=== PATIENT | male | born 1975 | race Caucasian/White ===

== ENCOUNTER 2016-10-13 20:30 | Emergency (ER) | payer OTHER ==
[~2016-10-13] VITALS: Ht 182.9 cm; Wt 95.3 kg
[2016-10-13 20:45] VITALS: BP 112/69
[2016-10-13] MEDS ORDERED: IV NORMAL SALINE 1000ML BAG 1,000 ML IV ONE ×2 (21:30→21:45)
[2016-10-13 21:31] LABS: BASO # 0.1 x10^3/uL (0.0-0.2); BASO % 1 % (0-3); EOS % 1 % (0-3); HEMATOCRIT 44.2 % (39.0-53.0); HEMOGLOBIN 15.2 g/dL (13.0-17.5); LYMPH # 0.7 x10^3/uL (1.0-4.8); LYMPH % 6 % (24-48); MEAN CORPUSCULAR HEMOGLOBIN 32 pg (25-35); MEAN CORPUSCULAR HGB CONC 34 g/dL (31-37); MEAN CORPUSCULAR VOLUME 93 fL (79-100); MONO % 6 % (0-9); NEUT % 86 % (31-73); PLATELET COUNT 169 x10^3/uL (140-400); RED BLOOD COUNT 4.77 x10^6/uL (4.30-5.70); RED CELL DISTRIBUTION WIDTH 12.3 % (11.5-14.5); WHITE BLOOD COUNT 11.1 x10^3/uL (4.0-11.0)
[2016-10-13 21:40] LABS: GFR 83.2; POTASSIUM 3.5 mmol/L (3.5-5.1)
[2016-10-13 21:45] LABS: ALBUMIN 3.9 g/dL (3.4-5.0); ALBUMIN/GLOBULIN RATIO 1.1 (1.0-1.7); TOTAL BILIRUBIN 0.5 mg/dL (0.2-1.0); TOTAL PROTEIN 7.3 g/dL (6.4-8.2)
[2016-10-13] MEDS ORDERED: KETOROLAC TROMETHAMINE 30 MG/ML SYRINGE. IV ONE (21:45)
[2016-10-13] MEDS ORDERED: ONDANSETRON PF 4 MG/2 ML VIAL. IV ONE (21:45)
[2016-10-13 22:14] LABS: % EOS 2 % (0-5); PLT ESTIMATE ADEQUATE (ADEQUATE); TOXIC GRANULATION SLIGHT
[2016-10-13 22:23] LABS: OBC FLU VALID
[2016-10-13] MEDS ORDERED: ONDA4TAB7 PO (22:46)
[2016-10-13] MEDS ORDERED: OSEL75CA PO (22:46)
[2016-10-13] MEDS ORDERED: NAPR500T3 PO (22:46)
--- NOTE | 2016-10-13 22:46 | PHYS DOC ---
Past Medical History Past Medical History: No Pertinent History Additional Past Medical Histor: Pt states no health hx-has had Stress test, Echo and worn Holter monitor. Past Surgical History: Other Additional Past Surgical Histo: Dental surgery. Alcohol Use: Rarely Drug Use: None Adult General Chief Complaint Chief Complaint: MULTIPLE COMPLAINTS HPI HPI 40-year-old male presents with a 2 day history of cough, fever, sweats, body aches and upper respiratory type symptoms. He states he has had no energy over the last 2 days. He also complains of a headache in the posterior aspect of his head that goes down his back. He is not been able to tolerate fluids because he gets sick to his stomach. He has had some sharp left-sided chest pain. [] Review of Systems Review of Systems Constitutional: Per history of present illness [] Eyes: Denies change in visual acuity, redness, or eye pain [] HENT: Denies nasal congestion or sore throat [] Respiratory: Per history of present illness [] Cardiovascular: No additional information not addressed in HPI [] GI: Denies abdominal pain, nausea, vomiting, bloody stools or diarrhea [] : Denies dysuria or hematuria [] Musculoskeletal: Denies back pain or joint pain [] Integument: Denies rash or skin lesions [] Neurologic: Denies headache, focal weakness or sensory changes [] Endocrine: Denies polyuria or polydipsia [] Current Medications Current Medications Current Medications Medications (Trade) Dose Ordered Sig/[facility] Start Time Stop Time Status Last Admin Dose Admin Ketorolac Tromethamine (Toradol) 30 mg 1X ONCE 10/13/16 21:45 10/13/16 21:46 DC 10/13/16 21:52 30 MG Ondansetron HCl 4 mg 4 mg 1X ONCE 10/13/16 21:45 10/13/16 21:46 DC 10/13/16 21:52 4 MG Sodium Chloride (Iv Sodium Chloride 0.9% 1000ml Bag) 1,000 ml @ 1,000 mls/hr 1X ONCE 10/13/16 21:45 10/13/16 22:44 10/13/16 21:51 1,000 MLS/HR Allergies Allergies Allergies Coded Allergies Type Severity Reaction Last Updated Verified penicillin Allergy Unknown Anaphylaxis 04/29/15 Yes Physical Exam Physical Exam Constitutional: Well developed, well nourished, no acute distress, non-toxic appearance. [] HENT: Normocephalic, atraumatic, bilateral external ears normal, oropharynx moist, no oral exudates, nose normal. [] Eyes: PERRLA, EOMI, conjunctiva normal, no discharge. [] Neck: Normal range of motion, no tenderness, supple, no stridor. [] Cardiovascular:Heart rate regular rhythm, no murmur [] Lungs & Thorax: Bilateral breath sounds clear to auscultation [] Abdomen: Bowel sounds normal, soft, no tenderness, no masses, no pulsatile masses. [] Skin: Warm, dry, no erythema, no rash. [] Back: No tenderness, no CVA tenderness. [] Extremities: No tenderness, no cyanosis, no clubbing, ROM intact, no edema. [] Neurologic: Alert and oriented X 3, normal motor function, normal sensory function, no focal deficits noted. [] Psychologic: Affect normal, judgement normal, mood normal. [] Current Patient Data Vital Signs Vital Signs Date Time Temp Pulse Resp B/P Pulse Ox O2 Delivery O2 Flow Rate FiO2 10/13/16 20:45 100.2 105 16 112/69 96 Room Air 100.2 Lab Values Laboratory Tests Test 10/13/16 20:49 10/13/16 22:00 White Blood Count 11.1x10^3/uL (4.0-11.0) H Red Blood Count 4.77x10^6/uL (4.30-5.70) Hemoglobin 15.2g/dL (13.0-17.5) Hematocrit 44.2% (39.0-53.0) Mean Corpuscular Volume 93fL (79-100) Mean Corpuscular Hemoglobin 32pg (25-35) Mean Corpuscular Hemoglobin Concent 34g/dL (31-37) Red Cell Distribution Width 12.3% (11.5-14.5) Platelet Count 169x10^3/uL (140-400) Neutrophils (%) (Auto) 86% (31-73) H Lymphocytes (%) (Auto) 6% (24-48) L Monocytes (%) (Auto) 6% (0-9) Eosinophils (%) (Auto) 1% (0-3) Basophils (%) (Auto) 1% (0-3) Neutrophils # (Auto) 9.6x10^3uL (1.8-7.7) H Lymphocytes # (Auto) 0.7x10^3/uL (1.0-4.8) L Monocytes # (Auto) 0.7x10^3/uL (0.0-1.1) Eosinophils # (Auto) 0.1x10^3/uL (0.0-0.7) Basophils # (Auto) 0.1x10^3/uL (0.0-0.2) Segmented Neutrophils % 81% (35-66) H Band Neutrophils % 5% (0-9) Lymphocytes % 4% (24-48) L Monocytes % 8% (0-10) Eosinophils % 2% (0-5) Toxic Granulation Slight Platelet Estimate Adequate (ADEQUATE) Sodium Level 136mmol/L (136-145) Potassium Level 3.5mmol/L (3.5-5.1) Chloride Level 100mmol/L (98-107) Carbon Dioxide Level 25mmol/L (21-32) Anion Gap 11 (6-14) Blood Urea Nitrogen 12mg/dL (8-26) Creatinine 1.0mg/dL (0.7-1.3) Estimated GFR (Cockcroft-Gault) 83.2 BUN/Creatinine Ratio 12 (6-20) Glucose Level 135mg/dL (70-99) H Calcium Level 9.0mg/dL (8.5-10.1) Total Bilirubin 0.5mg/dL (0.2-1.0) Aspartate Amino Transferase (AST) 20U/L (15-37) Alanine Aminotransferase (ALT) 50U/L (16-63) Alkaline Phosphatase 46U/L (46-116) Troponin I Quantitative < 0.017ng/mL (0.000-0.055) Total Protein 7.3g/dL (6.4-8.2) Albumin 3.9g/dL (3.4-5.0) Albumin/Globulin Ratio 1.1 (1.0-1.7) Influenza Type A Antigen Positive (NEGATIVE) Influenza Type B Antigen Negative (NEGATIVE) Laboratory Tests 10/13/16 20:49 Laboratory Tests 10/13/16 20:49 EKG EKG [] Radiology/Procedures Radiology/Procedures [] Impressions: Chest x-ray: No obvious infiltrate as interpreted by me Course & Med Decision Making Course & Med Decision Making Pertinent Labs and Imaging studies reviewed. (See chart for details) [ED course: Evaluation reveals a 40-year-old male who was positive for influenza A. His symptoms correlated with this finding. He was given 2 L of IV fluid 30 mg of Toradol and 4 mg of Zofran he stated he felt much better. Given that the patient's symptoms started in the last 24 hours and will go ahead and start him on Tamiflu.] Dragon Disclaimer Dragon Disclaimer This electronic medical record was generated, in whole or in part, using a voice recognition dictation system. Departure Departure Impression: Primary Impression: Influenza A Disposition: HOME, SELF-CARE Condition: IMPROVED Referrals: ONOFRE FISH MD (PCP) Patient Instructions: Influenza A (H1N1), Influenza Facts, Influenza Virus Vaccine injection (Fluarix) Additional Instructions: Return to the emergency department with any new or concerning symptoms. Scripts Ondansetron Hcl (Zofran)4 Mg Tablet1 Tab PO Q8HRS PRN NAUSEA #20 TAB Prov:CHIARA DAVILA DO 10/13/16 Naproxen 500 Mg Tablet1 Tab PO BID PRN PAIN #30 TAB Ref 1 Prov:CHIARA DAVILA DO 10/13/16 Oseltamivir Phosphate (Tamiflu)75 Mg Capsule1 Cap PO BID influenza #10 CAP Prov:CHIARA DAVILA DO 10/13/16 CHIARA DAVILA DO Oct 13, 2016 22:46
--- NOTE | 2016-10-14 08:07 | RAD ---
EXAM: Chest, single view. HISTORY: Cough. COMPARISON: 04/29/2015. FINDINGS: A frontal view of the chest is obtained. There is no infiltrate, effusion or pneumothorax. The heart is normal in size. There is stable biapical pleural thickening. IMPRESSION: No acute pulmonary finding.
--- NOTE | 2016-10-14 11:42 | EKG ---
[facility] [address] [place] [address] Test Date: 2016-10-13 Test Time: 20:41:06 Pat Name: DARSHAN SANDOVAL Department: Room: Gender: M Marketing Strategy Analyst: : 1975 Requested By: CHIARA DAVILA Order Number: [id number] Reading MD: Bennett Thomas Measurements Intervals [place] Rate: 100 P: 58 MT: 102 QRS: 26 QRSD: 94 T: 47 QT: 328 QTc: 426 Interpretive Statements SINUS RHYTHM Electronically Signed On 10-15-2016 10:37:16 [employer]OOKS [employer]ER by Bennett Thomas
== END 2016-10-13 22:54 | disposition home or self-care (01) ==
LOC: ER 20:30
DX: J09.X2 Influenza due to identified novel influenza A virus with other respiratory manifestations (principal); Z88.0 Allergy status to penicillin
CPT/HCPCS: 36415; 71010; 80053; 84484; 85007; 85027; 87804; 93005; 96361; 96374; 96375; 99285; J1885; J2405; J7030

== ENCOUNTER 2017-12-21 10:30 | Emergency (ER) | payer OTHER ==
[2017-12-21 11:28] LABS: ADD MAN DIFF? NO
[2017-12-21] MEDS: IV RINGERS,LACTATED 1000ML 1,000 ML IV (11:31)
[2017-12-21 11:36] LABS: BASO # 0.1 x10^3/uL (0.0-0.2); BASO % 1 % (0-3); EOS # 0.2 x10^3/uL (0.0-0.7); EOS % 3 % (0-3); HEMATOCRIT 47.9 % (39.0-53.0); HEMOGLOBIN 16.7 g/dL (13.0-17.5); LYMPH # 2.3 x10^3/uL (1.0-4.8); LYMPH % 32 % (24-48); MEAN CORPUSCULAR HEMOGLOBIN 33 pg (25-35); MEAN CORPUSCULAR HGB CONC 35 g/dL (31-37); MEAN CORPUSCULAR VOLUME 93 fL (79-100); MONO # 0.5 x10^3/uL (0.0-1.1); MONO % 7 % (0-9); NEUT # 4.2 x10^3uL (1.8-7.7); NEUT % 57 % (31-73); PLATELET COUNT 207 x10^3/uL (140-400); RED BLOOD COUNT 5.14 x10^6/uL (4.30-5.70); RED CELL DISTRIBUTION WIDTH 12.9 % (11.5-14.5); WHITE BLOOD COUNT 7.3 x10^3/uL (4.0-11.0)
[2017-12-21 11:40] LABS: ANION GAP 10 (6-14); BLOOD UREA NITROGEN 8 mg/dL (8-26); BUN/CREATININE RATIO 8 (6-20); CALCIUM 8.7 mg/dL (8.5-10.1); CARBON DIOXIDE 27 mmol/L (21-32); CHLORIDE 104 mmol/L (98-107); GFR 82.3; GLUCOSE 133 mg/dL (70-99); POTASSIUM 3.5 mmol/L (3.5-5.1); SODIUM 141 mmol/L (136-145)
[2017-12-21 11:45] LABS: ALBUMIN 3.7 g/dL (3.4-5.0); PARTIAL THROMBOPLASTIN TIME 26 SEC (24-38); PROTHROMBIN TIME PATIENT 12.2 SEC (11.7-14.0); TOTAL PROTEIN 7.6 g/dL (6.4-8.2)
[2017-12-21 11:46] LABS: ALBUMIN/GLOBULIN RATIO 0.9 (1.0-1.7); ALK PHOS 62 U/L (46-116); ALT (SGPT) 73 U/L (16-63); AST (SGOT) 25 U/L (15-37); LIPASE 73 U/L (73-393); TOTAL BILIRUBIN 0.4 mg/dL (0.2-1.0)
== END 2017-12-21 12:47 | disposition home or self-care (01) ==
LOC: ER 10:30
DX: K92.0 Hematemesis (principal); R05 Cough; R09.81 Nasal congestion; R19.7 Diarrhea, unspecified; F17.210 Nicotine dependence, cigarettes, uncomplicated; Z88.0 Allergy status to penicillin; J02.9 Acute pharyngitis, unspecified
CPT/HCPCS: 36415; 80053; 83690; 85025; 85610; 85730; 96360; 99284-25; J7120